=== PATIENT | male | born 2000 | race Caucasian/White ===

== ENCOUNTER 2024-03-08 00:37 | Outpatient (CLI) | payer OTHER, SELFPAY ==
--- OUTSIDE RECORDS SUMMARY | 2024-03-12 05:45 | XMS_ITS | Encounter Summary ---
Author Name Unknown Organization [facility] Address [address], [place] [address] Care Team Providers Care Motor Builder Winder Name Role Phone Ketan Carias MD Primary Care Provider [phone] Encounter Details Date Type Department Care Team (Late st Contact Info) Description 02/20/2024 2:00 PM CDT Lab Visit [facility] [address] [facility] [place] [address] Screening for tuberculosis; Need for [...] Gold Plus Mitogen (02/20/2024 1:56 PM CDT) [facility] Signature MITOGEN >10.000 IU/mL 02/23/2024 12:23 PM CDT [facility] Blood Venipuncture / Unknown 02/20/2024 1:56 PM CDT 02/20/2024 1:56 PM CDT Ketan Carias MD LAB_1 [facility] [address] [place] [address], [facility] * TB QuantiFERON Gold Plus TB2 (02/20/2024 1:56 PM CDT) Pathologist [facility] TB2 0.229 IU/mL 02/23/2024 12:23 PM CDT [facility] Blood Venipuncture / Unknown 02/20/2024 1:56 PM CDT 02/20/2024 1:56 PM CDT Ketan Carias MD LAB_1 Performing Organization Address [facility] Co de Phone Number [facility] [address] * TB QuantiFERON Gold Plus TB1 (02/20/2024 1:56 PM CDT) [facility] TB1 0.259 IU/mL 02/23/2024 12:24 PM CDT [facility] Blood Venipuncture / Unknown 02/20/2024 1:56 PM CDT 02/20/2024 1:56 PM CDT Ketan Carias MD LAB_1 Performing Organization Address [facility] de Phone Number [facility] [address] * TB QuantiFERON Gold Plus NIL (02/20/2024 1:56 PM CDT) [facility] TB QuantiFERON Gold Plus Negative, M. tuberculosis Infection NOT likely Negative, M. tuberculosis Infection NOT likely 02/23/2024 12:24 PM CDT [facility] NIL 0.169 IU/mL 02/23/2024 12:24 PM CDT [facility] TB1-NIL 0.09 IU/mL 02/23/2024 12:24 PM CDT [facility] TB2-NIL 0.06 IU/mL 02/23/2024 12:24 PM CDT [facility] Mitogen-NIL 9.83 IU/mL 02/23/2024 12:24 PM CDT [facility] Blood Venipuncture / Unknown 02/20/2024 1:56 PM CDT 02/20/2024 1:56 PM CDT Narrative [facility] - 02/23/2024 12:24 PM CDT The [...] immune response. For more information refer to: https://www.cdc.gov/mmwr/preview/mmwrhtml/dx5287z3.htm. Ketan Carias MD LAB_1 Performing Organization Address [facility] de Phone Number [facility] [address] [place] [address] * Rubella Immune Status, IgG (02/20/2024 1:56 PM CDT) Rubella Units 2.38 02/21/2024 12:39 PM CDT [facility] Comment:The magnitude of the measured result, above the cutoff, is not indicative of the amount of antibody present. Rubella Intepretation Immune Immune 02/21/2024 12:39 PM CDT [facility] Blood Venipuncture / Unknown 02/20/2024 1:56 PM CDT 02/20/2024 1:56 PM CDT Ketan Carias MD LAB_1 Performing Organization Address [facility] de Phone Number [facility] [address] [place] [address] * Mumps Virus Ab, IgG (Immune Status Check) (02/20/2024 1:56 PM CDT) Mumps Units 46.1 AU/mL 02/21/2024 12:34 PM CDT [facility] Comment:The magnitude of the measured result, above the cutoff, is not indicative of the amount of antibody present. Mumps Intepretation Immune Immune 02/21/2024 12:34 PM CDT [facility] Blood Venipuncture / Unknown 02/20/2024 1:56 PM CDT 02/20/2024 1:56 PM CDT Ketan Carias MD LAB_1 Performing Organization Address [facility] de Phone Number [facility] [address] [place] [address] * Measles Virus Ab, IgG (Immune Status Check) (02/20/2024 1:56 PM CDT) Rubeola Units 74.2 AU/mL 02/21/2024 12:33 PM CDT [facility] Comment:The magnitude of the measured result, above the cutoff, is not indicative of the amount of antibody present. Rubeola Interpretation Immune Immune 02/21/2024 12:33 PM CDT [facility] Blood Venipuncture / Unknown 02/20/2024 1:56 PM CDT 02/20/2024 1:56 PM CDT Ketan Carias MD LAB_1 Performing Organization Address [facility] Phone Number [facility] [address] [place] [address] * Hepatitis B Surface Antigen (02/20/2024 1:56 PM CDT) Pathologist [facility] Hepatitis B Surface Antigen Negative (Non Reactive) Negative (Non Reactive) 02/20/2024 6:20 PM CDT [facility] Blood Venipuncture / Unknown 02/20/2024 1:56 PM CDT 02/20/2024 1:56 PM CDT Ketan Carias MD LAB_1 Performing Organization Address [facility] de Phone Number [facility] [address] [place] [address] * Hepatitis B Surface Antibody (02/20/2024 1:56 PM CDT) Hep B Surf Antibody Result <2.0 mIU/mL 02/20/2024 6:36 PM CDT [facility] Hep B Surf Antibody Interpretation Negative (Non Reactive) Positive (Reactive) 02/20/2024 6:36 PM CDT [facility] Comment:Individual is consid ered not immune to HBV infection. Blood Venipuncture / Unknown 02/20/2024 1:56 PM CDT 02/20/2024 1:56 PM CDT Ketan Carias MD LAB_1 [facility] [address] [place], [place] [address] [place] [address] documented in this encounter Visit Diagnoses Diagnosis Screening for tuberculosis Screening examination for pulmonary tuberculosis Need for hepatitis B screening test Screening for measles Screening examination for measles documented in this encounter Care Teams Motor Builder Winder Relationship Specialty Start Date End Date Ketan Carias MD [address] [place] [address] PCP - General Family Practice 06/21/23 documented as of this encounter
--- OUTSIDE RECORDS SUMMARY | 2024-03-12 05:45 | XMS_ITS | Clinical Summary ---
Author Name Unknown Organization [facility] Address [address] [place] [address] Care Team Providers Care Vice President Name Role Phone Md, Not Listed Primary [...] Comments Blood Pressure 116/70 09/20/2023 12:00 PM SUPERVISOR GAS METER REPAIR Pulse 62 09/20/2023 12:00 PM SUPERVISOR GAS METER REPAIR Temperature 36.7 ??C (98 ??F) 09/20/2023 9:48 AM SUPERVISOR GAS METER REPAIR Respiratory Rate 16 09/20/2023 12:00 PM SUPERVISOR GAS METER REPAIR Oxygen Saturation 98% 09/20/2023 12:00 PM SUPERVISOR GAS METER REPAIR Inhaled Oxygen Concentration - - Weight 68 kg (150 lb) 09/17/2023 4:28 PM SUPERVISOR GAS METER REPAIR Height 177.8 cm (5' 10) 09/20/2023 6:38 AM SUPERVISOR GAS METER REPAIR Body Mass Index 21.52 09/17/2023 4:28 PM SUPERVISOR GAS METER REPAIR Plan of Treatment Health Maintenance Due Date [...] Advance Directives For more information, please contact: [phone] Latest Code Status on File Code Status Date Activated Date Inactivated Comments Full Code 09/20/2023 8:39 AM 09/20/2023 6:31 PM Question Answer Comments How was code status determined? Physician Determ [facility] Care Teams Vice President Relationship Specialty Start Date End Date Md, Not Listed no address PCP - General Family Medicine 09/09/23
--- OUTSIDE RECORDS SUMMARY | 2024-03-12 05:45 | XMS_ITS | Clinical Summary ---
Author Name Unknown Organization [facility] Address [address] [place] [address] Care Team Providers Care Retail Field Merchandiser Name Role Phone Ketan Carias MD Primary Care Provider [phone] Source Comments You are receiving this document as you are listed as the primary care provider,follow-up provider, or the patient has been referred to you for consultation.This is in compliance with the Medicare and[facility] EHR Incentive Program,which states Providers who [...] Active Insulin Infusion Pump (T:SLIM X2 INSULIN PRODUCTION SUPERINTENDENT HYDRO BASAL6.4) KARL Inject subcutaneously. Active Active Problems Problem Noted Date Diagnosed Date Peritonsillar abscess 09/13/2023 Encounters Date Type Department Care Team Description 02/20/2024 2:15 PM CDT Office Visit [address] [place] [address] Panda De La Garza MD Annual physical exam (Primary Dx); Type 1 diabetes mellitus without complication (HRC); Need for hepatitis C screening test; Screening for HIV (human immunodeficiency virus); Immunization due; Screening cholesterol level 02/20/2024 2:00 PM CDT Lab Visit [facility] [address] [place] [address]. [place] [address] Screening for tuberculosis; Need for hepatitis B screening test; Screening for measles 02/03/[address] [place] [address] Ketan Carias MD Lab/Rad Request from Last 3 Months Immunizations Name Administration Dates Next Due DTaP 11/28/2006, 4,01/26/2003,2002,2002 Flu Vac (3+ yrs) 07/22/2007,08/15/2005 Flu Vac Preserv Free (3+yrs) 08/05/2013, 07/18/2012,07/31/2011,2009 [id number] 12/07/2009,09/26/2009 HepA Ped/Adol (1-18 yrs) 07/08/2010,12/07/2009,0 07/22/2007 HepA, Pediatric (DO NOT USE; for MIIC only) 06/13/2006 HepB Ped/Adol (0-18 yrs) 2002 HepB, Unspecified Formulation 06/08/2003, 002 Hib, Unspecified Formulation 11/12/2003, 01/26/2003,2002,2001 IPV (Polio) 11/28/2006 Influenza (Flucelvax), Prese rv Free QIV 08/17/2022 Influenza IIV4 (Quadrivalent ) 0.5mL (16228) 07/26/2023,09/13/2021,07/14/2020,2014,08/03/2014 Influenza, Unspecified Formulation 09/04/2006 MCV4 Menveo [...] Rubella Units 2.38 02/21/2024 12:39 PM CDT [facility] Comment:The magnitude of the measured result, above the cutoff, is not indicative of the amount of antibody present. Rubella Intepretation Immune Immune 02/21/2024 12:39 PM CDT [facility] Blood Venipuncture / Unknown 02/20/2024 1:56 PM CDT 02/20/2024 1:56 PM CDT Ketan Carias MD LAB_1 Performing Organization Address [facility] Co de Phone Number [facility] [address] [place] [address] * TB QuantiFERON Gold Plus Mitogen (02/20/2024 1:56 PM CDT) MITOGEN >10.000 IU/mL 02/23/2024 12:23 PM CDT [facility] Blood Venipuncture / Unknown 02/20/2024 1:56 PM CDT 02/20/2024 1:56 PM CDT Ketan Carias MD LAB_1 Performing Organization Address [facility] Phone Number [facility] [address] [place] [address] * TB QuantiFERON Gold Plus TB2 (02/20/2024 1:56 PM CDT) TB2 0.229 IU/mL 02/23/2024 12:23 PM CDT [facility] Blood Venipuncture / Unknown 02/20/2024 1:56 PM CDT 02/20/2024 1:56 PM CDT Ketan Carias MD LAB_1 Performing Organization Address [facility] de Phone Number [facility] [address] [place] [address] * TB QuantiFERON Gold Plus TB1 (02/20/2024 1:56 PM CDT) TB1 0.259 IU/mL 02/23/2024 12:24 PM CDT [facility] Blood Venipuncture / Unknown 02/20/2024 1:56 PM CDT 02/20/2024 1:56 PM CDT Ketan Carias MD LAB_1 Performing Organization Address [facility] Co de Phone Number [facility] [address] * TB QuantiFERON Gold Plus NIL (02/20/2024 1:56 PM CDT) [facility] TB QuantiFERON Gold Plus Negative, M. tuberculosis Infection NOT likely Negative, M. tuberculosis Infection NOT likely 02/23/2024 12:24 PM CDT [facility] NIL 0.169 IU/mL 02/23/2024 12:24 PM CDT [facility] TB1-NIL 0.09 IU/mL 02/23/2024 12:24 PM CDT [facility] TB2-NIL 0.06 IU/mL 02/23/2024 12:24 PM CDT [facility] Mitogen-NIL 9.83 IU/mL 02/23/2024 12:24 PM CDT [facility] Blood Venipuncture / Unknown 02/20/2024 1:56 PM CDT 02/20/2024 1:56 PM CDT Narrative [facility] - 02/23/2024 12:24 PM CDT The [...] immune response. For more information refer to: https://www.cdc.gov/mmwr/preview/mmwrhtml/nw6247k5.htm. Ketan Carias MD LAB_1 [facility] [address] [place], [place] [address] [place] [address] * Hepatitis B Surface Antibody (02/20/2024 1:56 PM CDT) [facility] Hep B Surf Antibody Result <2.0 mIU/mL 02/20/2024 6:36 PM CDT [facility] Hep B Surf Antibody Interpretation Negative (Non Reactive) Positive (Reactive) 02/20/2024 6:36 PM CDT [facility] Comment:Individual is consid ered not immune to HBV infection. Blood Venipuncture / Unknown 02/20/2024 1:56 PM CDT 02/20/2024 1:56 PM CDT Ketan Carias MD LAB_1 Performing Organization Address [facility] de Phone Number [facility] [address] * Measles Virus Ab, IgG (Immune Status Check) (02/20/2024 1:56 PM CDT) Rubeola Units 74.2 AU/mL 02/21/2024 12:33 PM CDT [facility] Comment:The magnitude of the measured result, above the cutoff, is not indicative of the amount of antibody present. Rubeola Interpretation Immune Immune 02/21/2024 12:33 PM CDT [facility] Blood Venipuncture / Unknown 02/20/2024 1:56 PM CDT 02/20/2024 1:56 PM CDT Ketan Carias MD LAB_1 Performing Organization Address [facility] Phone Number [facility] [address] * Mumps Virus Ab, IgG (Immune Status Check) (02/20/2024 1:56 PM CDT) Mumps Units 46.1 AU/mL 02/21/2024 12:34 PM CDT [facility] Comment:The magnitude of the measured result, above the cutoff, is not indicative of the amount of antibody present. Mumps Intepretation Immune Immune 02/21/2024 12:34 PM CDT [facility] Blood Venipuncture / Unknown 02/20/2024 1:56 PM CDT 02/20/2024 1:56 PM CDT Ketan Carias MD LAB_1 Performing Organization Address [facility]ZIP Co de Phone Number [facility] [address] [place], [place] [address] * Hepatitis B Surface Antigen (02/20/2024 1:56 PM CDT) Hepatitis B Surface Antigen Negative (Non Reactive) Negative (Non Reactive) 02/20/2024 6:20 PM CDT [facility] Blood Venipuncture / Unknown 02/20/2024 1:56 PM CDT 02/20/2024 1:56 PM CDT Ketan Carias MD LAB_1 [facility] [address] [place] [address] from Last 3 Months Care Teams Retail Field Merchandiser Relationship Specialty Start Date End Date Ketan Carias MD [address] [place] [address] PCP - General Family Practice 06/21/23
--- OUTSIDE RECORDS SUMMARY | 2024-03-12 05:45 | XMS_ITS | Referral Summary ---
Author Name Unknown Organization [facility] Address [address] [place] [address] Care Team Providers Care Linoleum Tile Layer Name Role Phone Md, Not Listed Primary [...] Comments Blood Pressure 116/70 09/20/2023 12:00 PM VAMP STITCHER Pulse 62 09/20/2023 12:00 PM VAMP STITCHER Temperature 36.7 ??C (98 ??F) 09/20/2023 9:48 AM VAMP STITCHER Respiratory Rate 16 09/20/2023 12:00 PM VAMP STITCHER Oxygen Saturation 98% 09/20/2023 12:00 PM VAMP STITCHER Inhaled Oxygen Concentration - - Weight 68 kg (150 lb) 09/17/2023 4:28 PM VAMP STITCHER Height 177.8 cm (5' 10) 09/20/2023 6:38 AM VAMP STITCHER Body Mass Index 21.52 09/17/2023 4:28 PM VAMP STITCHER Plan of Treatment Not on file Advance Directives For more information, please contact: [phone] Latest Code Status on File Code Status Date Activated Date Inactivated Comments Full Code 09/20/2023 8:39 AM 09/20/2023 6:31 PM Question Answer Comments How was code status determined? [facility] Care Teams Linoleum Tile Layer Relationship Specialty Start Date End Date Md, Not Listed no address PCP - General Family Medicine 09/09/23
--- OUTSIDE RECORDS SUMMARY | 2024-03-12 05:45 | XMS_ITS | Referral Summary ---
Author Name Unknown Organization [facility] Address [address] [place] [address] Care Team Providers Care Home Care Companion Name Role Phone No Ref-Primary, Physician Primary [...] of Treatment Not on file Care Teams Home Care Companion Relationship Specialty Start Date End Date No Ref-Primary, Physician PCP - General 08/25/22
--- OUTSIDE RECORDS SUMMARY | 2024-03-12 05:46 | XMS_ITS | Clinical Summary ---
Author Name Unknown Organization [facility] Address [place], [place] [address] Care Team Providers Care Director E Learning Name Role Phone Physician, Briana Family Primary [...] age to complete this topic Care Teams Director E Learning Relationship Specialty Start Date End Date PhysicianBriana PCP - General 03/31/21
--- OUTSIDE RECORDS SUMMARY | 2024-03-12 05:46 | XMS_ITS | Encounter Summary ---
Author Name Unknown Organization [facility] Address [address], [place] [address] Care Team Providers Care Train Controller Name Role Phone Ketan Carias MD Primary Care Provider [phone] Reason for Visit * Reason Comments Lab/Rad Request Encounter Details Date Type Department Care Team (Late st Contact Info) Description 02/03/2024 Telephone [facility] [address] [place] [address]. [place] [address] Ketan Carias MD [facility] [place] [address] Lab/Rad Request Social History Tobacco [...] sign as appropriate and Route to CSS Patient/family day care worker request: New Order: Lab Specific Request: Needs [...] eligible for a QFT-G blood test. (RN, ORGANIZATIONAL PSYCHOLOGIST, or GRAPHIC DESIGN MANAGER/RMA/MA/EMT can place order per standing order for qualified patients). If patient answers YES to contraindication, consult with clinician for next steps. Step 3: Order Placement of QFT-G blood test TB Quantiferon Gold Plus lab order placed per standing order. Patient to present to lab for blood test. * Eliana Mccray RN - 02/03/2024 10:27 AM CDT Psychiatry Adult Physician called patient and left a message to call back [phone] Please use smart set to order * [...] Rubella Units 2.38 02/21/2024 12:39 PM CDT [facility] Comment:The magnitude of the measured result, above the cutoff, is not indicative of the amount of antibody present. Rubella Intepretation Immune Immune 02/21/2024 12:39 PM CDT [facility] Blood Venipuncture / Unknown 02/20/2024 1:56 PM CDT 02/20/2024 1:56 PM CDT Ketan Carias MD LAB_1 Performing Organization Address [facility] Phone Number [facility] [address] [place] [address] * Mumps Virus Ab, IgG (Immune Status Check) (02/20/2024 1:56 PM CDT) [facility] Mumps Units 46.1 AU/mL 02/21/2024 12:34 PM CDT [facility] Comment:The magnitude of the measured result, above the cutoff, is not indicative of the amount of antibody present. Mumps Intepretation Immune Immune 02/21/2024 12:34 PM CDT [facility] Blood Venipuncture / Unknown 02/20/2024 1:56 PM CDT 02/20/2024 1:56 PM CDT Ketan Carias MD LAB_1 Performing Organization Address [facility] Phone Number [facility] [address] [place] [address] * Measles Virus Ab, IgG (Immune Status Check) (02/20/2024 1:56 PM CDT) Rubeola Units 74.2 AU/mL 02/21/2024 12:33 PM CDT [facility] Comment:The magnitude of the measured result, above the cutoff, is not indicative of the amount of antibody present. Rubeola Interpretation Immune Immune 02/21/2024 12:33 PM CDT [facility] Blood Venipuncture / Unknown 02/20/2024 1:56 PM CDT 02/20/2024 1:56 PM CDT Ketan Carias MD LAB_1 Performing Organization Address [facility] Co de Phone Number [facility] [address] * Hepatitis B Surface Antigen (02/20/2024 1:56 PM CDT) Hepatitis B Surface Antigen Negative (Non Reactive) Negative (Non Reactive) 02/20/2024 6:20 PM CDT [facility] Blood Venipuncture / Unknown 02/20/2024 1:56 PM CDT 02/20/2024 1:56 PM CDT Ketan Carias MD LAB_1 Performing Organization Address [facility] Phone Number [facility] [address] * Hepatitis B Surface Antibody (02/20/2024 1:56 PM CDT) Hep B Surf Antibody Result <2.0 mIU/mL 02/20/2024 6:36 PM CDT [facility] Hep B Surf Antibody Interpretation Negative (Non Reactive) Positive (Reactive) 02/20/2024 6:36 PM CDT [facility] Comment:Individual is consid ered not immune to HBV infection. Blood Venipuncture / Unknown 02/20/2024 1:56 PM CDT 02/20/2024 1:56 PM CDT Ketan Carias MD LAB_1 Performing Organization Address [facility] Co de Phone Number [facility] [address] documented in this encounter Visit Diagnoses Diagnosis Screening for measles- Primary Screening examination for measles Screening for tuberculosis Screening examination for pulmonary tuberculosis Need for hepatitis B screening test documented in this encounter Care Teams Train Controller Relationship Specialty Start Date End Date Ketan Carias MD [address] [place] [address] PCP - General Family Practice 06/21/23 documented as of this encounter
--- OUTSIDE RECORDS SUMMARY | 2024-03-12 05:46 | XMS_ITS | Encounter Summary ---
Author Name Unknown Organization [facility] Address [address] [address] Care Team Providers Care Accounting Policy Consultant Name Role Phone Ketan Carias MD Primary Care Provider [phone] Reason for Visit * Reason Comments Annual Exam Test Request Tb/titer Encounter Details Date Type Department Care Team (Late st Contact Info) Description 02/20/2024 2:15 PM CDT Office Visit [place] [address] [facility] [address] [place], [place] [address] Panda De La Garza MD [address] [place], [place] [id number] Annual physical exam (Primary Dx); Type 1 [...] and me. Preceptor saw the patient. Panda De La Garza MD [place] Resident PGY-3 02/20/24 Associated attestation - Valeria Maynard MD - 02/20/2024 5:12 PM CDT [place] PRECEPTOR ATTESTATION GC: This service has been [...] disorders documented in this encounter Care Teams Accounting Policy Consultant Relationship Specialty Start Date End Date Ketan Carias MD [address] [place] [address] PCP - General Family Practice 06/21/23 documented as of this encounter
--- OUTSIDE RECORDS SUMMARY | 2024-03-12 05:46 | XMS_ITS | Patient Health Record ---
Author Name Unknown Organization [facility] Address [address] [place] [address] Care Team Providers Care Splitter Head Name Role Phone Jaye Membrenoan Primary Care Provider [phone] Reason For Referral No Information Immunizations Vaccine [...] Insured Coverage Start Date Coverage End Date [facility] [address] [place] [address] [id number] DEBORAH BURGESS Self - patient is the insured
== END 2024-03-08 00:38 | disposition home or self-care (01) ==
LOC: AMB 03-12 05:43
PROVIDERS: Visit Provider Family Medicine
DX: F10.129 Alcohol abuse with intoxication, unspecified (principal); R41.82 Altered mental status, unspecified
CPT/HCPCS: A0425; A0429

== ENCOUNTER 2024-03-08 01:06 | Emergency (ER) | payer OTHER, SELFPAY ==
[2024-03-08] VITALS (44 sets, daily range): BP systolic 83–115; BP diastolic 48–84; PULSE 68–90; RESP 16; TEMP 35.9; O2SAT 94–99
[2024-03-08] MEDS: 0.9 % SODIUM CHLORIDE 500 ML 500 ML 1000 ML IV (01:17)
--- NOTE | 2024-03-08 01:21 | ED.GENADULT ---
HPI - General Adult General Chief complaint: Alcohol/Intoxication Stated complaint: ETOH Time Seen by Provider: 03/08/24 01:11 Source: EMS Mode of arrival: EMS Limitations: other (Acute intoxication) History of Present Illness HPI narrative: Attended promptly in stable 1 upon EMS arrival. 23-year-old type 1 diabetic male presents to the emergency department by EMS with reported hypoglycemia. He was drinking alcohol heavily with a group of friends when they became concerned that he was getting too intoxicated and they were worried that his blood sugar could be low. He does wear continuous glucose monitor. According to the EMS team, there were no signs of alerts or trauma. Interestingly, the friend group decided to strip him down and put him in the shower which is where he is when EMS arrives. The rationale is unclear. Blood sugar was noted to be 66 at the scene and he was given 1 amp of D50. Initially with EMS arrival, he had woken up more but he sneezes back off to sleep on route. He did vomit in the ambulance as well and I arrive to him being cleaned up by the nursing team and getting triaged. He does not answer questions but he repositions for comfort and will open his eyes briefly to look at my face before he drifts off again. He does not offer anything else verbally. He does not have an insulin pump in place. Continuous glucose monitor in right posterior arm. No signs of drug paraphernalia or the trauma based on EMS assessment. The only treatment given was the glucose. They did not report any recent DKA or blood sugar anomalies but the friends would not likely be reliable sources for this due to their intoxication. Past medical history is obtained from EMS only and will need to be clarified but seems to only be pertinent for type 1 diabetes. I do not have records on his home medications or insulin regimen yet. ROS is unreliable, given only from EMS and notable for the hypoglycemia and intoxication. Related Data Home Medications Medication Instructions Recorded Confirmed Unobtainable 03/08/24 03/08/24 [facility] Social History Smoking Status: Never smoker Do you use any of these nicotine containing products: None How often do you have a drink containing alcohol: 2-4 times a month AUDIT-C Alcohol total score: 2 Non-prescribed substance use: denies use Exam Const: Vital Signs, click to edit/add: Vital Signs - 24 hr 03/08/24 01:13 03/08/24 01:44 03/08/24 01:45 Temperature 96.6 F L Pulse Rate 81 68 Respiratory Rate 16 Blood Pressure 98/63 Blood Pressure [Ri ght Upper Arm] 115/84 Pulse Oximetry 97 97 99 Oxygen Delivery Me thod Room Air 03/08/24 01:46 03/08/24 02:00 03/08/24 02:01 Temperature Pulse Rate 70 74 76 Respiratory Rate Blood Pressure 92/61 Blood Pressure [Ri ght Upper Arm] Pulse Oximetry 99 97 98 Oxygen Delivery Me thod 03/08/24 02:16 03/08/24 02:17 03/08/24 02:23 Temperature Pulse Rate 68 69 76 Respiratory Rate Blood Pressure 88/65 L 95/62 Blood Pressure [Ri ght Upper Arm] Pulse Oximetry 98 99 98 Oxygen Delivery Me thod 03/08/24 02:30 03/08/24 02:31 03/08/24 02:32 Temperature Pulse Rate 75 70 70 Respiratory Rate Blood Pressure 91/66 Blood Pressure [Ri ght Upper Arm] Pulse Oximetry 98 97 98 Oxygen Delivery Me thod 03/08/24 02:46 03/08/24 02:47 03/08/24 03:01 Temperature Pulse Rate 76 76 73 Respiratory Rate Blood Pressure 93/59 L 91/54 L Blood Pressure [Ri ght Upper Arm] Pulse Oximetry 98 98 98 Oxygen Delivery Me thod 03/08/24 03:02 03/08/24 03:15 03/08/24 03:16 Temperature Pulse Rate 75 74 74 Respiratory Rate Blood Pressure 94/54 L Blood Pressure [Ri ght Upper Arm] Pulse Oximetry 97 97 97 Oxygen Delivery Me thod 03/08/24 03:30 03/08/24 03:31 03/08/24 03:32 Temperature Pulse Rate 75 74 77 Respiratory Rate Blood Pressure 99/61 Blood Pressure [Ri ght Upper Arm] Pulse Oximetry 96 96 97 Oxygen Delivery Me thod 03/08/24 03:45 03/08/24 03:46 03/08/24 04:00 Temperature Pulse Rate 75 70 74 Respiratory Rate Blood Pressure 96/60 Blood Pressure [Ri ght Upper Arm] Pulse Oximetry 96 96 96 Oxygen Delivery Me thod 03/08/24 04:01 03/08/24 04:15 03/08/24 04:16 Temperature Pulse Rate 76 75 76 Respiratory Rate Blood Pressure 91/64 95/51 L Blood Pressure [Ri ght Upper Arm] Pulse Oximetry 95 96 96 Oxygen Delivery Me thod 03/08/24 04:31 03/08/24 04:32 03/08/24 04:45 Temperature Pulse Rate 68 74 78 Respiratory Rate Blood Pressure 91/50 L Blood Pressure [Ri ght Upper Arm] Pulse Oximetry 96 96 95 Oxygen Delivery Me thod 03/08/24 04:46 03/08/24 05:00 03/08/24 05:01 Temperature Pulse Rate 79 78 81 Respiratory Rate Blood Pressure 88/50 L 87/51 L Blood Pressure [Ri ght Upper Arm] Pulse Oximetry 95 95 95 Oxygen Delivery Me thod 03/08/24 05:15 03/08/24 05:16 03/08/24 05:17 Temperature Pulse Rate 75 75 76 Respiratory Rate Blood Pressure 85/52 L Blood Pressure [Ri ght Upper Arm] Pulse Oximetry 95 95 95 Oxygen Delivery Me thod 03/08/24 05:30 03/08/24 05:31 03/08/24 05:45 Temperature Pulse Rate 73 72 71 Respiratory Rate Blood Pressure 91/48 L Blood Pressure [Ri ght Upper Arm] Pulse Oximetry 95 96 95 Oxygen Delivery Ut thod 03/08/24 05:46 03/08/24 06:00 03/08/24 06:01 Temperature Pulse Rate 75 75 90 Respiratory Rate Blood Pressure 83/48 L 98/49 L Blood Pressure [Ri ght Upper Arm] Pulse Oximetry 95 95 95 Oxygen Delivery Ut thod 03/08/24 06:15 03/08/24 06:16 Temperature Pulse Rate 76 73 Respiratory Rate Blood Pressure 93/50 L Blood Pressure [Ri ght Upper Arm] Pulse Oximetry 94 94 Oxygen Delivery Me thod Documenting provider has reviewed patient's vital signs: yes Other: Drowsy, will open eyes to voice only but does not answer questions. Will reposition himself for comfort. Covered in vomit but is being cleaned by nursing team. No obvious signs of trauma or skin injury. HENMT: Common normals: normocephalic, moist oral mucous membranes and oropharynx normal Head and scalp: normocephalic Eye: Common normals: PERRL General eye: normal appearance of both eyes Pupil: PERRL Neck & C-Spine: Common normals: no lymphadenopathy General: normal visual inspection Cervical spine: no cervical spine tenderness Resp: Common normals: normal respiratory effort and clear to auscultation bilaterally Auscultation: clear to auscultation bilaterally Cardio: Common normals: regular rate, regular rhythm, S1 normal heart sound, S2 normal heart sound and no murmurs Rate: regular rate Rhythm: regular rhythm Heart sounds: S1 normal and S2 normal GI: Common normals: Normal to inspection, nondistended, normoactive bowel sounds present, soft to palpation and no masses Palpation: soft Extremity: Common normals: normal to inspection, normal capillary refill and no pedal edema General: normal exam except as noted Psych: Other: Heavily intoxicated Skin: Common normals: no rashes or lesions noted General skin exam: no rashes or lesions noted Course Course ED Course: 23-year-old male with heavy alcohol intoxication, mild hypoglycemia not likely the source of his altered mental status. High risk for hypoglycemia, DKA or other abnormality. Cannot exclude other metabolic derangement. Patient will receive a quick bolus of 500 mL normal saline and 4 mg of Zofran. Will then obtain venous blood gas, alcohol level, basic chemistry, CBC. Hourly Accu-Cheks. Blood sugar during my assessment was 122. Will start D5 normal saline at 125 mL/hour and watch hourly Accu-Cheks. Patient cannot be discharged home until he is fully alert, sober and able to check his own blood sugar and take oral nutrition, will likely be in 6-8 hours. Reevaluation(s) Time of Reevaluation #1: 03:53 Reevaluation #1: Item dated dad about an hour ago regarding son's condition. I do not think that there was any significant time of severe hyperglycemia that would have caused mental impairment. Patient is quite drunk. I did see his insulin pump on his abdomen. This was hiding under the towel which was containing his vomit on my initial exam. Continue to watch his blood sugars carefully. Nursing team just informed me that his most recent check was 77, compared to 971 hour ago. Will increase the D5 rate to 200 mL/hour and recheck blood sugar in 1 hour. Once patient is awake enough to operate his own phone, we can switch to use of his CGM. If he is not starting to improve mentation in a couple of hours, consider additional workup. Time of Reevaluation #2: 07:19 Reevaluation #2: We have been steadily decreasing the D5 drip overnight to keep his blood sugar 100-150. Patient is wide awake now. He is able to interrogate his CGM for me. It looks like his blood sugar was borderline low for about a 1/2 hour around the time EMS was called. I have him get up, test his ambulation balance, ocular tracking. Dad is drooling him with math questions which he also passes. He is able to hold conversation as well. There do not seem to be any major deficits. I do not think that a CT scan would further answer this question for me. Counseled dad that the most important treatment is rapid correction of low blood sugars which we were able to do. Additional neurological workup could be taken on if there appear to be any deficits which I doubt that there will be moving forward. Patient counseled to drink lots of fluids, continue managing his insulin basal and bolus is as per his typical regimen. Okay to use Tylenol and ibuprofen as needed for headache, body aches. Dad will take him home. Alarm symptoms reviewed. All questions answered Vital Signs Vital signs: Initial Vital Signs Temperature 96.6 F L 03/08/24 01:13 Temperature Source Temporal Artery Scan 03/08/24 01:13 Respiratory Rate 16 03/08/24 01:13 Blood Pressure 115/84 03/08/24 01:13 Blood Pressure Mean 94 03/08/24 01:13 Pulse Oximetry 97 03/08/24 01:13 Oxygen Delivery Method Room Air 03/08/24 01:13 Vital Signs Temperature 96.6 F L 03/08/24 01:13 Respiratory Rate 16 03/08/24 01:13 Blood Pressure 115/84 03/08/24 01:13 Pulse Oximetry 97 03/08/24 01:13 Oxygen Delivery Method Room Air 03/08/24 01:13 Temperature 96.6 F L 03/08/24 01:13 Pulse Rate 73 03/08/24 06:16 Respiratory Rate 16 03/08/24 01:13 Blood Pressure 93/50 L 03/08/24 06:16 Pulse Oximetry 94 03/08/24 06:16 Oxygen Delivery Method Room Air 03/08/24 01:13 Medications Administered Medications: Generic Name Dose Route Start Last Admin Trade Name Freq PRN Reason Stop Dose Admin Dextrose/Sodium Chloride 1,000 mls @ 200 mls/hr 03/08/24 03:32 03/08/24 06:21 5 % Dextrose/0.9% Sod Chloride IV 125 mls/hr .Q5H CANDY Infusion Discontinued Medications Generic Name Dose Route Start Last Admin Trade Name Chago TANN Reason Stop Dose Admin Dextrose/Sodium Chloride 1,000 mls @ 125 mls/hr 03/08/24 01:15 03/08/24 03:31 5 % Dextrose/0.9% Sod Chloride IV Infused .Q8H CANDY Infusion Sodium Chloride 500 mls @ 1,000 mls/hr 03/08/24 01:14 03/08/24 02:04 0.9 % Sodium Chloride 500 Ml IV 03/08/24 01:43 Infused .Q30M ONE Infusion Ondansetron HCl 4 mg 03/08/24 01:14 03/08/24 01:24 Ondansetron 2 Mg/Ml Inj IVP 03/08/24 01:15 4 mg ONCE ONE Administration Medical Decision Making Lab Data Lab results reviewed: Yes I reviewed the patient's lab results Lab results narrative: Overall initially reassuring. Hypoglycemia is improving. Glucose drip has been started. No signs of an anion gap or underlying unusual metabolic process. Blood alcohol level 0.2. That would certainly explain the decreased responsiveness. Labs: Lab Results 03/08/24 03/08/24 03/08/24 Range/Units 01:11 01:38 02:11 WBC 11.93 H (4.50-11.00) K/uL RBC 4.80 (4.30-5.90) m/uL Hgb 14.6 (13.5-17.5) gm/dL Hct 44.0 (37.0-53.0) % MCV 92 (80-100) fL MCH 30 (26-34) pg MCHC 33 (32-36) gm/dL RDW Coeff of David 13.1 (11.5-15.5) % Plt Count 195 (140-440) K/uL Neut % (Auto) 68.6 (42.0-72.0) % Lymph % (Auto) 21.5 (20-44) % [place] % (Auto) 6.9 (0.0-11.0) % Eos % (Auto) 1.5 (0.0-7.0) % Baso % (Auto) 0.3 (0.0-3.0) % Neut # (Auto) 8.20 H (1.7-7.0) K/uL Lymph # (Auto) 2.60 (0.90-2.90) K/uL [place] # (Auto) 0.80 (0.00-0.90) K/UL Eos # (Auto) 0.20 (0.00-0.50) K/uL Baso # (Auto) 0.00 (0.00-0.30) K/uL Abs Immat Gran (auto) 0.10 (0.00-0.30) K/uL Imm/Tot Granulo (auto) 1.2 % VBG pH 7.281 L (7.32-7.43) VBG pCO2 54 H (40-50) mmHG VBG pO2 < 30.1 (25-47) mmHG VBG HCO3 26 (21-28) mmol/L Sodium 143 (135-149) mmol/L Potassium 3.4 L (3.6-5.1) mmol/L Chloride 109 (96-114) mmol/L Carbon Dioxide 24 (20-32) mmol/L Anion Gap 10 (7-15) mEq/L BUN 14 (5-24) mg/dL Creatinine 0.7 (0.5-1.5) mg/dL Estimated GFR 134 ml/min Glucose 78 (60-115) mg/dL Calcium 8.3 L (8.4-10.6) mg/dL Ethyl Alcohol 0.20 H (0.01-0.03) % POC Glucose 122 H 97 (60-115) mg/dl 03/08/24 03/08/24 03/08/24 Range/Units 03:15 04:11 05:15 WBC (4.50-11.00) K/uL RBC (4.30-5.90) m/uL Hgb (13.5-17.5) gm/dL Hct (37.0-53.0) % MCV (80-100) fL MCH (26-34) pg MCHC (32-36) gm/dL RDW Coeff of David (11.5-15.5) % Plt Count (140-440) K/uL Neut % (Auto) (42.0-72.0) % Lymph % (Auto) (20-44) % [place] % (Auto) (0.0-11.0) % Eos % (Auto) (0.0-7.0) % Baso % (Auto) (0.0-3.0) % Neut # (Auto) (1.7-7.0) K/uL Lymph # (Auto) (0.90-2.90) K/uL [place] # (Auto) (0.00-0.90) K/UL Eos # (Auto) (0.00-0.50) K/uL Baso # (Auto) (0.00-0.30) K/uL Abs Immat Gran (auto) (0.00-0.30) K/uL Imm/Tot Granulo (auto) % VBG pH (7.32-7.43) VBG pCO2 (40-50) mmHG VBG pO2 (25-47) mmHG VBG HCO3 (21-28) mmol/L Sodium (135-149) mmol/L Potassium (3.6-5.1) mmol/L Chloride (96-114) mmol/L Carbon Dioxide (20-32) mmol/L Anion Gap (7-15) mEq/L BUN (5-24) mg/dL Creatinine (0.5-1.5) mg/dL Estimated GFR ml/min Glucose (60-115) mg/dL Calcium (8.4-10.6) mg/dL Ethyl Alcohol (0.01-0.03) % POC Glucose 77 115 142 H (60-115) mg/dl 03/08/24 Range/Units 06:20 WBC (4.50-11.00) K/uL RBC (4.30-5.90) m/uL Hgb (13.5-17.5) gm/dL Hct (37.0-53.0) % MCV (80-100) fL MCH (26-34) pg MCHC (32-36) gm/dL RDW Coeff of David (11.5-15.5) % Plt Count (140-440) K/uL Neut % (Auto) (42.0-72.0) % Lymph % (Auto) (20-44) % [place] % (Auto) (0.0-11.0) % Eos % (Auto) (0.0-7.0) % Baso % (Auto) (0.0-3.0) % Neut # (Auto) (1.7-7.0) K/uL Lymph # (Auto) (0.90-2.90) K/uL [place] # (Auto) (0.00-0.90) K/UL Eos # (Auto) (0.00-0.50) K/uL Baso # (Auto) (0.00-0.30) K/uL Abs Immat Gran (auto) (0.00-0.30) K/uL Imm/Tot Granulo (auto) % VBG pH (7.32-7.43) VBG pCO2 (40-50) mmHG VBG pO2 (25-47) mmHG VBG HCO3 (21-28) mmol/L Sodium (135-149) mmol/L Potassium (3.6-5.1) mmol/L Chloride (96-114) mmol/L Carbon Dioxide (20-32) mmol/L Anion Gap (7-15) mEq/L BUN (5-24) mg/dL Creatinine (0.5-1.5) mg/dL Estimated GFR ml/min Glucose (60-115) mg/dL Calcium (8.4-10.6) mg/dL Ethyl Alcohol (0.01-0.03) % POC Glucose 152 H (60-115) mg/dl Discharge Plan Discharge Clinical Impression: Alcoholic intoxication, Hypoglycemia Patient Disposition: Home w/ Parent or Adult Condition: Improved Instructions: Alcohol Intoxication (DC) Additional Instructions: Drinking alcohol to the point of having intoxication can be dangerous because of your diabetes. There are no clear signs of damage from your low blood sugar. Your altered mental status was thought more likely secondary to alcohol since your levels were nearly triple the legal limit. Continue your typical basal and bolus dosing through today. Drink lots of fluids. Seek input from campus health services if you feel your drinking is problematic. Activity Level: No Restrictions Discharge Diet: Diabetic Prescriptions: No Action Unobtainable Follow Up/Referrals: Provider,Not a Local [Primary Care Provider] - Stand Alone Forms: [employer] Info Instructions
[2024-03-08] MEDS: ONDANSETRON 2 MG/ML inj 4 MG IVP (01:24)
[2024-03-08 01:38] LABS: Glucose, Point-of-Care* 122 mg/dl (60-115)
[2024-03-08] MEDS: 5 % DEXTROSE/0.9% SOD CHLORIDE 1,000 ML 125 ML IV (01:45)
[2024-03-08 01:46] LABS: HCO3 VBG 26 mmol/L (21-28); PCO2 VBG 54 mmHG (40-50); PO2 VBG < 30.1 mmHG (25-47); pH VBG 7.281 (7.32-7.43)
[2024-03-08 01:49] LABS: Basophils Percent Auto 0.3 % (0.0-3.0); Eosinophils Percent Auto 1.5 % (0.0-7.0); Hemoglobin* 14.6 gm/dL (13.5-17.5); Immature Granulocytes Pct Auto 1.2 %; Lymphocytes Percent Auto 21.5 % (20-44); Mean Corpuscular HGB Conc 33 gm/dL (32-36); Mean Corpuscular Hemoglobin 30 pg (26-34); Mean Corpuscular Volume 92 fL (80-100); Monocytes Percent Auto 6.9 % (0.0-11.0); Neutrophils Percent Auto 68.6 % (42.0-72.0); Platelet Count* 195 K/uL (140-440); RDW Coefficient of Variation % 13.1 % (11.5-15.5); White Blood Count* 11.93 K/uL (4.50-11.00)
[2024-03-08 02:02] LABS: Slide Review Reflex No
[2024-03-08 02:03] LABS: Chloride* 109 mmol/L (96-114); Sodium* 143 mmol/L (135-149)
[2024-03-08 02:04] LABS: Potassium* 3.4 mmol/L (3.6-5.1)
[2024-03-08 02:06] LABS: Creatinine* 0.7 mg/dL (0.5-1.5); Estimated Glomerular Filt Rate 134 ml/min
[2024-03-08 02:07] LABS: Anion Gap 10 mEq/L (7-15); Blood Urea Nitrogen* 14 mg/dL (5-24); Calcium* 8.3 mg/dL (8.4-10.6); Carbon Dioxide* 24 mmol/L (20-32); Glucose* 78 mg/dL (60-115)
[2024-03-08 02:21] LABS: Glucose, Point-of-Care* 97 mg/dl (60-115)
--- OUTSIDE RECORDS SUMMARY | 2024-03-08 02:52 | XMS_ITS | Clinical Summary ---
Author Name Unknown Organization [employer] [facility] Address [place], [place] [address] Care Team Providers Care Pm Technician Name Role Phone Physician, Briana Family Primary Care Provider Un available Allergies No known active allergies Medications Medication Sig Dispensed Refills Start Date End Date Status Lyumjev U-100 Insulin 100 unit/mL soln INJECT 120 UNITS UNDER THE SKIN DAILY DIRECTED 03/31/2021 Active Glucagon Emergency Kit, human, 1 mg injection INJECT UNDER THE SKIN NEEDED FOR SEVERE HYPOGLYCEMIA 12/02/2020 Active Social History Tobacco Use Types Packs/Day Years Used Date Smoking Tobacco: Never Smokeless Tobacco: Never Tobacco Cessation:Counseling Given: No Alcohol Use Standard Drinks/Week Comments Not Currently 0 (1 standard drink = 0.6 oz pur e alcohol) PHQ-2 Answer Date Recorded PHQ-2 TOTAL SCORE 0 04/10/2021 Social Connections Answer Date Recorded Frequency of Communication with Friends and Fami ly Not on file 11/04/2021 Financial Resource Strain Answer Date R ecorded Difficulty of Paying Living Expenses Not on file 11/04/2021 Difficulty of Paying Living Expenses Not on file 11/04/2021 Sex and Gender Information Value Date Recorded Sex Assigned at Not on file Gender Identity Not on file Sexual Orientation Not on file Obstetrics History Last Filed Vital Signs Vital Sign Reading Time Taken Comments Blood Pressure 114/76 04/10/2021 10:06 AM CDT Pulse 68 04/10/2021 10:06 AM CDT Temperature - - Respiratory Rate - - Oxygen Saturation - - Inhaled Oxygen Concentration - - Weight 62.1 kg (137 lb) 04/10/2021 10:06 AM CDT Height 177.8 cm (5' 10) 04/10/2021 10:06 AM CDT Body Mass Index 19.66 04/10/2021 10:06 AM CDT Plan of Treatment Health Maintenance Due Date Last Done Comments Tdap 2013 HIV for age 15-65 2017 HPV series for age 9-26 (1 - Male 3-dose series) 2017 Hepatitis C screening for ag e 18-79 2020 BMI (ht and wt on same day) for age 18+ 04/10/2022 04/10/2021 Depression screening for age 12+ 04/10/2022 04/10/20 21 Tetanus booster 2022 COVID-19 vaccine series ( season) 2023 Influenza for age 9-49 07/05/2024 Meningococcal series for age 11-21 Aged Out No longer eligible based on patient's age to complete this topic Pneumococcal series for age 6-64 Aged Out No longer eligible based on patient's age to complete this topic Care Teams Pm Technician Relationship Specialty Start Date End Date PhysicianBriana PCP - General 03/31/21
--- OUTSIDE RECORDS SUMMARY | 2024-03-08 02:52 | XMS_ITS | Encounter Summary ---
Author Name Unknown Organization [facility] Address [address] [address] Care Team Providers Care Special Effects Artist Name Role Phone Ketan Carias MD Primary Care Provider [phone] Reason for Visit * Reason Comments Lab/Rad Request Encounter Details Date Type Department Care Team (Late st Contact Info) Description 02/03/2024 Telephone [facility] [address] [place] [address]. [place] [address] Ketan Carias MD [facility] [place] [address] Lab/Rad Request Social History Tobacco Use Types Packs/Day Years Used Date Smoking Tobacco: Never Smokeless Tobacco: Never Alcohol Use Standard Drinks/Week Comments Yes 1 (1 standard drink = 0.6 oz pur e alcohol) occ PHQ-2 Answer Date Recorded PHQ-2 Score 0 07/03/2023 Financial Resource Strain Answer Date R ecorded Is it hard for you to pay fo r the very basics like food, housing, medical care or heating? No 07/03/2023 Food Insecurity Answer Date Recorded Does your food run out before you have the money to buy more? No 07/03/2023 Transportation Needs Answer Date Record ed Does a lack of transportatio n keep you from your medical appointments or from getting your medications? No 023 Sex and Gender Information Value Date Recorded Sex Assigned at Not on file Gender Identity Not on file Sexual Orientation Not on file documented as of this encounter Nursing Notes * DayEliana RN - 02/03/2024 11:35 AM CDT Patient calling back - routed to lab for appt * Marika Nicholson LPN - 02/03/2024 11:18 AM CDT Left detailed message as well as number to call back if patient has any questions. * Ketan Carias MD - 02/03/2024 11:13 AM CDT Order signed. * Eliana Mccray RN - 02/03/2024 10:34 AM CDT Clinician: Review order(s) and sign as appropriate and Route to CSS Patient/intensive care nurse request: New Order: Lab Specific Request: Needs labs for med school, pended below Patient is needing titers for hep b surface antibody, antigen and MMR TB gold test ordered per standing order. Deejay Lopez is here today for Tuberculosis testing. Step 1: Determine appropriate test for patient. Has patient had a documented previous positive Tuberculin Skin Test (Mantoux Test/TST) or positive QFT-G blood test (Quantiferon Gold/TB Gold)? No What is the patient???s age? 2 years of age or older. The preferred test for this age group is the QFT-G blood test (Quantiferon Gold/TB Gold). If the patient prefers the skin test, the TST can be ordered and administered following this standing order. Step 2: Assessment and Contraindication Screening & Testing QFT-G blood Test Assessment Information (Can be done by IVANNA KELLY, ALLAN/RUPERT/MA/EMT). Is TB testing required for C&TC exam, work, school, or immigration? Yes Has there been a recent exposure to an individual with TB disease? No Was patient born in, had recent travel to, or frequently travels to countries where TB disease is common? No Does patient live or work in high-risk settings (i.e., correctional facilities, long-term care facilities, nursing homes, homeless shelters, etc.)? No Is patient immunosuppressed? No If the answer is YES to any of these questions, the patient is eligible for a QFT-Gold blood test. Proceed to next step: Order Placement of QFT-G blood Test. If all of the answers are NO, patient does not meet requirements to order TB testing by standing order. Consult clinician for next steps. Contraindication Screening: Received live-virus vaccination within the past 4 weeks? No Patient reports the following TB symptoms: none If patient reports any TB symptoms initiate airborne precautions: patient needs to be seen by clinician. If NO contraindications: the patient is eligible for a QFT-G blood test. (RN, ROLLS BAKER, or SPECIAL EFFECTS DESIGNER/RMA/MA/EMT can place order per standing order for qualified patients). If patient answers YES to contraindication, consult with clinician for next steps. Step 3: Order Placement of QFT-G blood test TB Quantiferon Gold Plus lab order placed per standing order. Patient to present to lab for blood test. * Eliana Mccray RN - 02/03/2024 10:[address] Construction Inspector called patient and left a message to call back [phone] Please use smart set to order * Phuc Artis - 02/03/2024 10:14 AM CDT Orders - Lab What order is being requested? Quantiferon Gold Titer testing Why is this order being requested? Needs for school When were you seen last for this concern? By whom? 07/03/2023 with PCP Additional comments (related to the above concern): Is it okay to leave a detailed message on your voicemail? Yes Is there anything else I can help you with today? documented in this encounter Plan of Treatment Not on file documented as of this encounter Results * Rubella Immune Status, IgG (02/20/2024 1:56 PM CDT) Rubella Units 2.38 02/21/2024 12:39 PM CDT [facility] Comment:The magnitude of the measured result, above the cutoff, is not indicative of the amount of antibody present. Rubella Intepretation Immune Immune 02/21/2024 12:39 PM CDT [facility] Blood Venipuncture / Unknown 02/20/2024 1:56 PM CDT 02/20/2024 1:56 PM CDT Ketan Carias MD LAB_1 Performing Organization Address [facility] Phone Number [facility] [address] [place] [address] * Mumps Virus Ab, IgG (Immune Status Check) (02/20/2024 1:56 PM CDT) [facility] Mumps Units 46.1 AU/mL 02/21/2024 12:34 PM CDT [facility] Comment:The magnitude of the measured result, above the cutoff, is not indicative of the amount of antibody present. Mumps Intepretation Immune Immune 02/21/2024 12:34 PM CDT [facility] Blood Venipuncture / Unknown 02/20/2024 1:56 PM CDT 02/20/2024 1:56 PM CDT Ketan Carias MD LAB_1 Performing Organization Address [facility] Phone Number [facility] [address] [place] [address] * Measles Virus Ab, IgG (Immune Status Check) (02/20/2024 1:56 PM CDT) Rubeola Units 74.2 AU/mL 02/21/2024 12:33 PM CDT [facility] Comment:The magnitude of the measured result, above the cutoff, is not indicative of the amount of antibody present. Rubeola Interpretation Immune Immune 02/21/2024 12:33 PM CDT [facility] Blood Venipuncture / Unknown 02/20/2024 1:56 PM CDT 02/20/2024 1:56 PM CDT Ketan Carias MD LAB_1 Performing Organization Address [facility] Co de Phone Number [facility] [address] * Hepatitis B Surface Antigen (02/20/2024 1:56 PM CDT) Hepatitis B Surface Antigen Negative (Non Reactive) Negative (Non Reactive) 02/20/2024 6:20 PM CDT [facility] Blood Venipuncture / Unknown 02/20/2024 1:56 PM CDT 02/20/2024 1:56 PM CDT Ketan Carias MD LAB_1 Performing Organization Address [facility] Phone Number [facility] [address] * Hepatitis B Surface Antibody (02/20/2024 1:56 PM CDT) Hep B Surf Antibody Result <2.0 mIU/mL 02/20/2024 6:36 PM CDT [facility] Hep B Surf Antibody Interpretation Negative (Non Reactive) Positive (Reactive) 02/20/2024 6:36 PM CDT [facility] Comment:Individual is consid ered not immune to HBV infection. Blood Venipuncture / Unknown 02/20/2024 1:56 PM CDT 02/20/2024 1:56 PM CDT Ketan Carias MD LAB_1 Performing Organization Address [facility] Co de Phone Number [facility] [address] documented in this encounter Visit Diagnoses Diagnosis Screening for measles- Primary Screening examination for measles Screening for tuberculosis Screening examination for pulmonary tuberculosis Need for hepatitis B screening test documented in this encounter Care Teams Special Effects Artist Relationship Specialty Start Date End Date Ketan Carias MD [address] [place] [address] PCP - General Family Practice 06/21/23 documented as of this encounter
--- OUTSIDE RECORDS SUMMARY | 2024-03-08 02:52 | XMS_ITS | Clinical Summary ---
Author Name Unknown Organization [facility] Address [address] [place] [address] Care Team Providers Care Patternator Name Role Phone Md, Not Listed Primary Care Provider Unavailabl e Allergies No known active allergies Medications Medication Sig Dispensed Refills Start Date End Date Status insulin lispro, HumaLOG, (HUMALOG U-100 INSULIN) 100 unit/mL vial Inject under the skin three times a day before meals. With meals Active insulin pump Inject under the skin. Type of insulin: Humalog Basal rate: 1 Correctional scale: 26 Insulin to carb ratio: 5.5 Active albuterol HFA (PROVENTIL;VENTOLIN HFA) 90 mcg/actuation Inhl inhaler Inhale 2 puffs as needed. Active oxyCODONE (ROXICODONE) 5 mg/5 mL oral solution Take 5-10 mL (5-10 mg) by mouth every 4 (four) hours as needed. 225 mL 09/20/2023 Active acetaminophen (TYLENOL) 160 mg/5 mL oral Liquid liquid Take 20.3mL (650 mg) by mouth every 6 (six) hours. 500 mL 09/20/2023 Active lidocaine 2% (XYLOCAINE) 2 % MM viscous solution Take 15 mL by mouth every 2 (two) hours as needed or as directed. 300 mL 09/20/2023 Active clindamycin palmitate (CLEOCIN) 75 mg/5 mL oral solution Take 20 mL (300 mg) by mouth every 8 (eight) hours. Discard remainder. 500 mL 09/20/2023 Active Social History Tobacco Use Types Packs/Day Years Used Date Smoking Tobacco: Never Smokeless Tobacco: Never Alcohol Use Standard Drinks/Week Comments Yes 0 (1 standard drink = 0.6 oz pur e alcohol) occasionally Sex and Gender Information Value Date Recorded Sex Assigned at Not on file Gender Identity Not on file Sexual Orientation Not on file Last Filed Vital Signs Vital Sign Reading Time Taken Comments Blood Pressure 116/70 09/20/2023 12:00 PM KEY ACCOUNT MANAGER Pulse 62 09/20/2023 12:00 PM KEY ACCOUNT MANAGER Temperature 36.7 ??C (98 ??F) 09/20/2023 9:48 AM KEY ACCOUNT MANAGER Respiratory Rate 16 09/20/2023 12:00 PM KEY ACCOUNT MANAGER Oxygen Saturation 98% 09/20/2023 12:00 PM KEY ACCOUNT MANAGER Inhaled Oxygen Concentration - - Weight 68 kg (150 lb) 09/17/2023 4:28 PM KEY ACCOUNT MANAGER Height 177.8 cm (5' 10) 09/20/2023 6:38 AM KEY ACCOUNT MANAGER Body Mass Index 21.52 09/17/2023 4:28 PM KEY ACCOUNT MANAGER Plan of Treatment Health Maintenance Due Date Last Done Comments Hepatitis C Screening 2002 Anxiety Screening (GEOVANNY-2) 2003 Depression Assessment (PHQ-2) 2003 HPV Vaccine (1 - Male 3-dose series) 2017 COVID-19 Vaccine ( season) 2023 11/02/2022, 08/18/2021, 01/10/2021, Additional history exists Adult Tetanus Booster 09/09/2023 09/09/2013 Pneumococcal <65 Aged Out 11/12/2003, , 2002, Additional history exists No longer eligible based on patient's age to complete this topic Influenza Vaccine Completed 07/26/2023, , 07/14/2020, Additional history exists Advance Directives For more information, please contact: [phone] Latest Code Status on File Code Status Date Activated Date Inactivated Comments Full Code 09/20/2023 8:39 AM 09/20/2023 6:31 PM Question Answer Comments How was code status determined? Physician Determ [facility] Care Teams Patternator Relationship Specialty Start Date End Date Md, Not Listed no address PCP - General Family Medicine 09/09/23
--- OUTSIDE RECORDS SUMMARY | 2024-03-08 02:52 | XMS_ITS | Referral Summary ---
Author Name Unknown Organization [facility] Address [address] [place] [address] Care Team Providers Care Kitchen Steward Name Role Phone No Ref-Primary, Physician Primary Care Provider Allergies No known active allergies Medications Medication Sig Dispensed Refills Start Date End Date Status glucagon 1 MG kit INJECT UNDER THE SKIN NEEDED FOR SEVERE HYPOGLYCEMIA 12/02/2020 Active Insulin Lispro-aabc (LYUMJEV) 100 UNIT/ML SOLN INJECT 120 UNITS UNDER THE SKIN DAILY DIRECTED 03/31/2021 Active amoxicillin-clavul anate (AUGMENTIN) 875-125 MG tablet Take 1 tablet by mouth 2 times daily 28 tablet 08/25/2022 Active dexamethasone (DECADRON) 6 MG tablet Take 1 tablet (6 mg) by mouth daily 5 tablet 08/25/2022 Active HYDROcodone-Acetam inophen 5-217 MG/10ML SOLN Take 5 mg of opiate by mouth 2 times daily 118 mL 08/25/2022 Active Social History Tobacco Use Types Packs/Day Years Used Date Smoking Tobacco: Never Assessed Adolescent Education Answer Date Record ed Getting School Help Needed Not on file 07/27 Sex and Gender Information Value Date Recorded Sex Assigned at Not on file Gender Identity Not on file Sexual Orientation Not on file Last Filed Vital Signs Vital Sign Reading Time Taken Comments Blood Pressure 126/85 08/25/2022 2:28 PM CDT Pulse 87 08/25/2022 2:28 PM CDT Temperature 37.7 ??C (99.8 ??F) 08/25/2022 2:28 PM CD T Respiratory Rate 18 08/25/2022 2:28 PM CDT Oxygen Saturation 96% 08/25/2022 2:28 PM CDT Inhaled Oxygen Concentration - - Weight - - Height - - Body Mass Index - - Plan of Treatment Not on file Care Teams Kitchen Steward Relationship Specialty Start Date End Date No Ref-Primary, Physician PCP - General 08/25/22
--- OUTSIDE RECORDS SUMMARY | 2024-03-08 02:52 | XMS_ITS | Clinical Summary ---
Author Name Unknown Organization [facility] Address [address] [place] [address] Care Team Providers Care Renal Case Manager Name Role Phone No Ref-Primary, Physician Primary [...] Mass Index - - Plan of Treatment Health Maintenance Due Date Last Done Comments ADVANCE CARE PLANNING 2002 ANNUAL REVIEW OF HM ORDERS 2002 YEARLY PREVENTIVE VISIT 2002 HIV SCREENING 2017 HPV IMMUNIZATION (1 - Male 3-dose series) 2017 HEPATITIS C SCREENING 2020 COVID-19 Vaccine (4 - season) 2023 08/18/2021, 01/10/2021, 12/13/2020 DTAP/TDAP/TD IMMUNIZATION (7 - Td or Tdap) 09/09/2023 09/09/2013, 11/28/2006, 11/12/2003, Additional history exists PHQ-2 (once per calendar year) 2023 INFLUENZA VACCINE (Season Ended) 2024 08/17/2022, 09/13/2021, 07/14/2020, Additional history exists HEPATITIS B IMMUNIZATION Completed 003, 2002, 2002 Pneumococcal Vaccine: Pediatrics (0 to 5 Years) and At-Risk Patients (6 to 64 Years) Aged Out 11/12/2003, 01/26/2003, 2002, Additional history exists No longer eligible based on patient's age to complete this topic IPV IMMUNIZATION Completed 11/28/2006, 03/2003, 2002, Additional history exists MENINGITIS IMMUNIZATION Aged Out 09/09/2013 No l onger eligible based on patient's age to complete this topic RSV MONOCLONAL ANTIBODY Aged Out No l onger eligible based on patient's age to complete this topic Care Teams Renal Case Manager Relationship Specialty Start Date End Date No Ref-Primary, Physician PCP - General 08/25/22
--- OUTSIDE RECORDS SUMMARY | 2024-03-08 02:52 | XMS_ITS | Encounter Summary ---
Author Name Unknown Organization [facility] Address [address] [address] Care Team Providers Care Corporation Secretary Name Role Phone Ketan Carias MD Primary Care Provider [phone] Encounter Details Date Type Department Care Team (Late st Contact Info) Description 02/20/2024 2:00 PM CDT Lab Visit [facility] [address] [facility] [place] [address] Screening for tuberculosis; Need for hepatitis B screening test; Screening for measles Social History Tobacco Use Types Packs/Day Years [...] on file documented as of this encounter Plan of Treatment Not on file documented as of this encounter Procedures Procedure Name Priority Date/Time Associated Diagnosis Comments RUBELLA IMMUNE STATUS, IGG Routine 02/20/2024 1:56 PM CDT Screening for measles TB QUANTIFERON GOLD PLUS Routine 02/20/2024 1:56 PM CDT Screening for tuberculosis TB QUANTIFERON GOLD PLUS MITOGEN Routine 02/20/2024 1:56 PM CDT Screening for tuberculosis TB QUANTIFERON GOLD PLUS TB2 Routine 02/20/2024 1:56 PM CDT Screening for tuberculosis TB QUANTIFERON GOLD PLUS TB1 Routine 02/20/2024 1:56 PM CDT Screening for tuberculosis TB QUANTIFERON GOLD PLUS NIL Routine 02/20/2024 1:56 PM CDT Screening for tuberculosis HEPATITIS B SURFACE ANTIBODY Routine 02/20/2024 1:56 PM CDT Need for hepatitis B screening test MEASLES VIRUS AB, IGG (IMMUNE STATUS CHECK) Routine 02/20/2024 1:56 PM CDT Screening for measles MUMPS IMMUNE STATUS, IGG Routine 02/20/2024 1:56 PM CDT Screening for measles HBSAG (HEPATITIS B SURFACE AG) Routine 02/20/2024 1:56 PM CDT Need for hepatitis B screening test documented in this encounter Results * TB QuantiFERON Gold Plus Mitogen (02/20/2024 1:56 PM CDT) [facility] Signature MITOGEN >10.000 IU/mL 02/23/2024 12:23 PM CDT [facility] Blood Venipuncture / Unknown 02/20/2024 1:56 PM CDT 02/20/2024 1:56 PM CDT Ketan Carias MD LAB_1 [facility] [address] [place] [address], [place] * TB QuantiFERON Gold Plus TB2 (02/20/2024 1:56 PM CDT) Pathologist [facility] TB2 0.229 IU/mL 02/23/2024 12:23 PM CDT [facility] Blood Venipuncture / Unknown 02/20/2024 1:56 PM CDT 02/20/2024 1:56 PM CDT Ketan Carias MD LAB_1 Performing Organization Address [facility] Co de Phone Number [facility] [address] * TB QuantiFERON Gold Plus TB1 (02/20/2024 1:56 PM CDT) [facility] TB1 0.259 IU/mL 02/23/2024 12:24 PM CDT [facility] Blood Venipuncture / Unknown 02/20/2024 1:56 PM CDT 02/20/2024 1:56 PM CDT Ketan Carias MD LAB_1 Performing Organization Address [facility] de Phone Number [facility] [address] * TB QuantiFERON Gold Plus NIL (02/20/2024 1:56 PM CDT) [facility] TB QuantiFERON Gold Plus Negative, M. tuberculosis Infection NOT likely Negative, M. tuberculosis Infection NOT likely 02/23/2024 12:24 PM CDT [facility] NIL 0.169 IU/mL 02/23/2024 12:24 PM CDT [facility] TB1-NIL 0.09 IU/mL 02/23/2024 12:24 PM CDT [facility] TB2-NIL 0.06 IU/mL 02/23/2024 12:24 PM CDT [facility] Mitogen-NIL 9.83 IU/mL 02/23/2024 12:24 PM CDT [facility] Blood Venipuncture / Unknown 02/20/2024 1:56 PM CDT 02/20/2024 1:56 PM CDT Narrative [facility] - 02/23/2024 12:24 PM CDT The results of the QuantiFERON TB Gold Plus should be correlated clinically. A single positive test in populations with a low prevalence of latent tuberculosis infection (low pretest probability), should not be taken as definitive evidence of infection. Decisions regarding retesting should be made on a case by case basis. When TB1-NIL or TB2-NIL is low (<1 IU/mL), repeat testing may alternate between positive and negative due to measurement imprecision and not necessarily a change in immune response. For more information refer to: https://www.cdc.gov/mmwr/preview/mmwrhtml/ld5118p8.htm. Ketan Carias MD LAB_1 Performing Organization Address [facility] de Phone Number [facility] [address] [place] [address] * Rubella Immune Status, IgG (02/20/2024 1:56 PM CDT) Rubella Units 2.38 02/21/2024 12:39 PM CDT [facility] Comment:The magnitude of the measured result, above the cutoff, is not indicative of the amount of antibody present. Rubella Intepretation Immune Immune 02/21/2024 12:39 PM CDT [facility] Blood Venipuncture / Unknown 02/20/2024 1:56 PM CDT 02/20/2024 1:56 PM CDT Ketna Carias MD LAB_1 Performing Organization Address [facility] de Phone Number [facility] [address] [place] [address] * Mumps Virus Ab, IgG (Immune Status Check) (02/20/2024 1:56 PM CDT) Mumps Units 46.1 AU/mL 02/21/2024 12:34 PM CDT [facility] Comment:The magnitude of the measured result, above the cutoff, is not indicative of the amount of antibody present. Mumps Intepretation Immune Immune 02/21/2024 12:34 PM CDT [facility] Blood Venipuncture / Unknown 02/20/2024 1:56 PM CDT 02/20/2024 1:56 PM CDT Ketan Carias MD LAB_1 Performing Organization Address [facility] de Phone Number [facility] [address] [place] [address] * Measles Virus Ab, IgG (Immune Status Check) (02/20/2024 1:56 PM CDT) Rubeola Units 74.2 AU/mL 02/21/2024 12:33 PM CDT [facility] Comment:The magnitude of the measured result, above the cutoff, is not indicative of the amount of antibody present. Rubeola Interpretation Immune Immune 02/21/2024 12:33 PM CDT [facility] Blood Venipuncture / Unknown 02/20/2024 1:56 PM CDT 02/20/2024 1:56 PM CDT Ketan Carias MD LAB_1 Performing Organization Address [facility] Phone Number [facility] [address] [place] [address] * Hepatitis B Surface Antigen (02/20/2024 1:56 PM CDT) Pathologist [facility] Hepatitis B Surface Antigen Negative (Non Reactive) Negative (Non Reactive) 02/20/2024 6:20 PM CDT [facility] Blood Venipuncture / Unknown 02/20/2024 1:56 PM CDT 02/20/2024 1:56 PM CDT Ketan Carias MD LAB_1 Performing Organization Address [facility] de Phone Number [facility] [address] [place] [address] * Hepatitis B Surface Antibody (02/20/2024 1:56 PM CDT) Hep B Surf Antibody Result <2.0 mIU/mL 02/20/2024 6:36 PM CDT [facility] Hep B Surf Antibody Interpretation Negative (Non Reactive) Positive (Reactive) 02/20/2024 6:36 PM CDT [facility] Comment:Individual is consid ered not immune to HBV infection. Blood Venipuncture / Unknown 02/20/2024 1:56 PM CDT 02/20/2024 1:56 PM CDT Ketan Carias MD LAB_1 [facility] [address] [place], [place] [id number] [place] [address] documented in this encounter Visit Diagnoses Diagnosis Screening for tuberculosis Screening examination for pulmonary tuberculosis Need for hepatitis B screening test Screening for measles Screening examination for measles documented in this encounter Care Teams Corporation Secretary Relationship Specialty Start Date End Date Ketan Carias MD [address] [place] [address] PCP - General Family Practice 06/21/23 documented as of this encounter
--- OUTSIDE RECORDS SUMMARY | 2024-03-08 02:52 | XMS_ITS | Patient Health Record ---
Author Name Unknown Organization [facility] Address [address] [place] [address] Care Team Providers Care Horse Shoer Name Role Phone Jaye Membrenoan Primary Care Provider [phone] Reason For Referral No Information Immunizations Vaccine Route Administration Date Status Comme nts Moderna-Primary dose (12 years & older) 0.5ml & (0.25ml bosster dose) IM Intramuscular 12/13/2020 Administered Moderna-Primary dose (12 years & older) 0.5ml & (0.25ml bosster dose) IM Intramuscular 01/10/2021 Administered Plan Of Treatment No Information Insurance Providers Payer Name Payer Address Payer Phone Subscriber Number Group Number Insured Name Patient Relationship to Insured Coverage Start Date Coverage End Date [facility] [address] [place] [phone] [id number] DEBORAH BURGESS Self - patient is the insured
--- OUTSIDE RECORDS SUMMARY | 2024-03-08 02:52 | XMS_ITS | Encounter Summary ---
Author Name Unknown Organization [facility] Address [address], [place] [address] Care Team Providers Care Air Sealing Technician Name Role Phone Ketan Carias MD Primary Care Provider [phone] Reason for Visit * Reason Comments Annual Exam Test Request Tb/titer Encounter Details Date Type Department Care Team (Late st Contact Info) Description 02/20/2024 2:15 PM CDT Office Visit [place] [id number] [facility] [address] [place], [place] [id number] Panda De La Garza MD [address] [place], [place] [id number] Annual physical exam (Primary Dx); Type 1 diabetes mellitus without complication (HRC); Need for hepatitis C screening test; Screening for HIV (human immunodeficiency virus); Immunization due; Screening cholesterol level Social History Tobacco Use Types Packs/Day Years [...] on file documented as of this encounter Last Filed Vital Signs Vital Sign Reading Time Taken Comments Blood Pressure 107/69 02/20/2024 2:40 PM CDT Pulse 70 02/20/2024 2:40 PM CDT Temperature 36.7 ??C (98.1 ??F) 02/20/2024 2:40 PM CD T Respiratory Rate - - Oxygen Saturation 99% 02/20/2024 2:40 PM CDT Inhaled Oxygen Concentration - - Weight 68.9 kg (152 lb) 02/20/2024 2:40 PM CDT Height 176.5 cm (5' 9.5) 02/20/2024 2:40 PM CDT Body Mass Index 22.12 02/20/2024 2:40 PM CDT documented in this encounter Progress Notes * Panda De La Garza MD - 02/20/2024 2:15 PM CDT PREVENTIVE MALE VISIT Subjective Deejay Lopez is a 23 y.o. male who presents for a routine preventive physical exam. Patient concerns: 1. Form for med school. Preventive Health: Diet: mostly eats healthy choices, protein, veggies and carb's. Exercise: At least 2-3 times a week, does 1 hour of exercising , does 2 miles and rest is weight lifting or calisthenic Substance Abuse: none Relationship: Yes, male new relationship. Safe in relationship. Practices safe sex. Consistently uses seat belts. Consistently wears bike helmet. No guns in the home. Sun protection used. Social History Lives in a townhouse with college room mates, not currently employed. Very relaxed, no stress currently. Smoking: Never Alcohol: Ocassionally, 2-4 beers per week Health Maintenance: Immunizations: COVID: up to date Influenza: due today Tetanus: up to date HPV series: up to date Shingles: due today Pneumococcal vaccine: due today Lipid screening: ordered today, pending collection Diabetes screening: ordered today, pending collection HIV screening: ordered today, pending collection Hepatitis C screening: ordered today, pending collection Colorectal cancer screening: referral provided Objective Filed Vitals: 02/20/24 1440 BP: 107/69 Pulse: 70 Temp: 98.1 ??F (36.7 ??C) TempSrc: Oral SpO2: 99% Weight: 152 lb (68.9 kg) Height: 5' 9.5 (1.765 m) Estimated body mass index is 22.12 kg/m?? as calculated from the following: Height as of this encounter: 5' 9.5 (1.765 m). Weight as of this encounter: 152 lb (68.9 kg). General Appearance: alert, well appearing and in no apparent distress Heart: regular rate and rhythm, no murmurs, gallops or rubs and normal S1 and S2 Lungs: clear to ausculation, no wheezes, rales or rhonchi, equal breath sounds throughout and normal respiratory effort Abdomen: soft, non tender, nondistended Extremities: Warm and well perfused, no edema or clubbing Neurologic: normal speech, no facial droop or focal neurologic deficit Psychiatric: affect/mood normal, cooperative, normal judgement/insight and memory intact PHQ2 was administered today with a total score of 0. See flowsheet for details. Assessment/Plan Deejay Lopez is a 23 y.o. male who presents for a routine preventive physical exam. 1. Annual physical exam Healthy overall, no concerns today, school form for med school filled out and given -Vision screening . 2. Type 1 diabetes mellitus without complication (HRC) Well controlled, on insulin. last A1c this month was 5.9, follow up with private endocrine clinic. Has CGM and blood glucose mostly within normal range. Denies any complications. 3. Need for hepatitis C screening test - Hepatitis C Antibody, with Reflex; Future 4. Screening for HIV (human immunodeficiency virus) - HIV 1/2 Ag/Ab 4th Generation; Future 5. Immunization due - TDAP 7. Screening cholesterol level - Lipid Panel and Direct LDL(If Needed); Future Counseled on the following: Healthy diet Regular physical activity Regular brushing, flossing, dental care Tobacco, alcohol, drug use Preventive visit in 1 year, sooner as needed for any concerns. Dr. Maynard, supervising physician, was immediately available during the visit to answer questions forboth the patient and me. Preceptor saw the patient. Panda D eLa Garza MD [place] Resident PGY-3 02/20/24 Associated attestation - Valeria Maynard MD - 02/20/2024 5:12 PM CDT NEW [facility] PRECEPTOR ATTESTATION GC: This service has been performed in part by a resident, Panda De La Garza MD, under the direction of a teaching physician. I have personally seen the patient and agree with the resident's findings. documented in this encounter Plan of Treatment Scheduled Orders Name Type Priority Associated Diagnoses Orde r Schedule Hepatitis C Antibody, with Reflex Microbiology Routine Need for hepatitis C screening test Expected: 02/20/2024, Expires: 05/20/2024 HIV 1/2 Ag/Ab 4th Generation Microbiology Routine Screening for HIV (human immunodeficiency virus) Expected: 02/20/2024, Expires: 05/20/2024 Lipid Panel and Direct LDL(If Needed) Lab Routine Screening cholesterol level Expected: 02/20/2024, Expires: 05/20/2024 documented as of this encounter Visit Diagnoses Diagnosis Annual physical exam- Primary Routine general medical examination at a health care facility Type 1 diabetes mellitus without complication (HRC) Type I (juvenile type) diabetes mellitus without mention of complication, not stated as uncontrolled Need for hepatitis C screening test Special screening examination for other specified viral diseases Screening for HIV (human immunodeficiency virus) Special screening examination for other specified viral diseases Immunization due Need for prophylactic vaccination and inoculation against unspecified single disease Screening cholesterol level Screening for lipoid disorders documented in this encounter Care Teams Air Sealing Technician Relationship Specialty Start Date End Date Ketan Carias MD [address] [place] [address] PCP - General Family Practice 06/21/23 documented as of this encounter
--- OUTSIDE RECORDS SUMMARY | 2024-03-08 02:52 | XMS_ITS | Clinical Summary ---
Author Name Unknown Organization [facility] Address [address] [place] [address] Care Team Providers Care Animal Warden Name Role Phone Ketan Carias MD Primary Care Provider [phone] Source Comments You are receiving this document as you are listed as the primary care provider,follow-up provider, or the patient has been referred to you for consultation.This is in compliance with the Medicare and[facility] EHR Incentive Program,which states Providers who transition their patient to another setting of careor provider of care or refers their patient to another provider of care shouldprovide summary care record for each transition of care or referral. [facility] Allergies No known active allergies Medications Medication Sig Dispensed Refills Start Date End Date Status PRECISION XTRA CHECK 1 TO 4 TIMES WHEN BLOOD SUGARS ARE ELEVATED OR DURING ILLNESS 04/18/2023 Active HUMALOG 100 UNIT/ML injection vial TAKE 120 UNIT PER DAY FOR 30 DAYS 04/24/2023 Active LANTUS SOLOSTAR 100 UNIT/ML pen ADMINISTER UP TO 30 UNITS UNDER THE SKIN EVERY DAY FOR PUMP FAILURE 04/17/2023 Active Insulin Disposable Pump (OMNIPOD 5 G6 POD, GEN 5,) SMARTSI SUB-Q Every Other Day 05/06/2023 Active BAQSIMI ONE PACK 3 MG/DOSE nasal powder daily. 04/17/2023 Acti ve ALBUterol sulfate HFA 108 (90 Base) MCG/ACT inhaler Inhale 2 Puffs every 4 hours as needed. Active Insulin Infusion Pump (T:SLIM X2 INSULIN ATTENDANT [facility]IL[facility] BASAL6.4) KARL Inject subcutaneously. Active Active Problems Problem Noted Date Diagnosed Date Peritonsillar abscess 09/13/2023 Encounters Date Type Department Care Team Description 02/20/2024 2:15 PM CDT Office Visit [address] [place] [address] Panda De La Garza MD Annual physical exam (Primary Dx); Type 1 diabetes mellitus without complication (HRC); Need for hepatitis C screening test; Screening for HIV (human immunodeficiency virus); Immunization due; Screening cholesterol level 02/20/2024 2:00 PM CDT Lab Visit [facility] [address] [place] [address]. [place] [address] Screening for tuberculosis; Need for hepatitis B screening test; Screening for measles 02/03/[address] [place] [address] Ketan Carias MD Lab/Rad Request from Last 3 Months Immunizations Name Administration Dates Next Due DTaP 11/28/2006, 4,01/26/2003,2002,2002 Flu Vac (3+ yrs) 07/22/2007,08/15/2005 Flu Vac Preserv Free (3+yrs) 08/05/2013, 07/18/2012,07/31/2011,2009 [id number] 12/07/2009,09/26/2009 HepA Ped/Adol (1-18 yrs) 07/08/2010,12/07/2009,0 07/22/2007 HepA, Pediatric (DO NOT USE; for [facility] only) 06/13/2006 HepB Ped/Adol (0-18 yrs) 2002 HepB, Unspecified Formulation 06/08/2003, 002 Hib, Unspecified Formulation 11/12/2003, 01/26/2003,2002,2001 IPV (Polio) 11/28/2006 Influenza (Flucelvax), Prese rv Free QIV 08/17/2022 Influenza IIV4 (Quadrivalent ) 0.5mL (08864) 07/26/2023,09/13/2021,07/14/2020,2014,08/03/2014 Influenza, Unspecified Formulation 09/04/2006 MCV4 Menveo 2m.+ (two vial) 09/09/2013 MMR 11/28/2006,07/28/2003 Moderna Bivalent 12+ 07/26/2023,11/02/2022 Moderna Monovalent 12+ 08/18/2021,01/10/2021,07/2021 Pneumococcal 7, PED 11/12/2003, 3,2002,2001 Polio, Unspecified Formulation 06/08/2003,2002,2002 Tdap 02/20/2024,09/09/2013 Typhoid (Typhim Vi, IM) 04/10/2012 Varicella 07/26/2009,07/28/2003 Family History Medical History Relation Name Comments Hypertension Father Down Syndrome Brother Cancer Maternal Grandfather Cancer Paternal Grandfather Relation Name Status Comments Father Alive Mother Alive Brother Alive Maternal Grandfather Paternal Grandfather Sister Alive Social History Tobacco Use Types Packs/Day Years Used Date Smoking Tobacco: Never Smokeless Tobacco: Never Tobacco Cessation:Counseling Given: Not Answered Alcohol Use Standard Drinks/Week Comments Yes 1 [...] Mass Index 22.12 02/20/2024 2:40 PM CDT Plan of Treatment Health Maintenance Due Date Last Done Comments Diabetes: Creatinine 2002 Diabetes: Eye Exam 2002 Diabetes: Foot Exam 2002 Diabetes: HGBA1C 2002 Diabetes: Lipid Panel 2002 Diabetes: Urine Microalbumin 2002 Hep C Screening (Preventive Services) 2002 Pneumococcal (1 - PCV) 2008 4, 01/26/2003, 2002, Additional history exists HPV Vaccine (1 - Risk male 3-dose series) 2013 HIV Screening (Preventive Services) 2018 COVID-19 Vaccine ( season) 2023 07/26/2023, 11/02/2022, 08/18/2021, Additional history exists Adult Preventive Visit 02/19/2025 02/20/2024, 2022 DTaP/Tdap/Td (8 - Tdap) 02/19/2034 02/20/20 24, 09/09/2013, 11/28/2006, Additional history exists Zoster/Shingles (1 of 2) 2052 HepB Completed 06/08/2003, 08/05, 2002 Hib Completed 11/12/2003, 01/03, 2002, Additional history exists IPV (Polio) Completed 11/28/2006, 03/2003, 2002, Additional history exists Varicella Completed 07/26/2009, 07/28/2003 HepA Completed 07/08/2010, 01/2010, 07/22/2007, Additional history exists MCV4 Aged Out 09/09/2013 No longer eligi ble based on patient's age to complete this topic Influenza Completed 07/26/2023, 08/04, 09/13/2021, Additional history exists Procedures Procedure Name Priority Date/Time Associated Diagnosis Comments RUBELLA IMMUNE STATUS, IGG Routine 02/20/2024 1:56 PM CDT Screening for measles MUMPS IMMUNE STATUS, IGG Routine 02/20/2024 1:56 PM CDT Screening for measles MEASLES VIRUS AB, IGG (IMMUNE STATUS CHECK) Routine 02/20/2024 1:56 PM CDT Screening for measles HBSAG (HEPATITIS B SURFACE AG) Routine 02/20/2024 1:56 PM CDT Need for hepatitis B screening test HEPATITIS B SURFACE ANTIBODY Routine 02/20/2024 1:56 PM CDT Need for hepatitis B screening test TB QUANTIFERON GOLD PLUS MITOGEN Routine 02/20/2024 1:56 PM CDT Screening for tuberculosis TB QUANTIFERON GOLD PLUS TB2 Routine 02/20/2024 1:56 PM CDT Screening for tuberculosis TB QUANTIFERON GOLD PLUS TB1 Routine 02/20/2024 1:56 PM CDT Screening for tuberculosis TB QUANTIFERON GOLD PLUS NIL Routine 02/20/2024 1:56 PM CDT Screening for tuberculosis TB QUANTIFERON GOLD PLUS Routine 02/20/2024 1:56 PM CDT Screening for tuberculosis from Last 3 Months Results * Rubella Immune Status, IgG (02/20/2024 1:56 PM CDT) Rubella Units 2.38 02/21/2024 12:39 PM CDT [facility] Comment:The magnitude of the measured result, above the cutoff, is not indicative of the amount of antibody present. Rubella Intepretation Immune Immune 02/21/2024 12:39 PM CDT [facility] Blood Venipuncture / Unknown 02/20/2024 1:56 PM CDT 02/20/2024 1:56 PM CDT Ketan Carias MD LAB_1 Performing Organization Address [facility] Co de Phone Number [facility] [address] [place] [address] * TB QuantiFERON Gold Plus Mitogen (02/20/2024 1:56 PM CDT) MITOGEN >10.000 IU/mL 02/23/2024 12:23 PM CDT [facility] Blood Venipuncture / Unknown 02/20/2024 1:56 PM CDT 02/20/2024 1:56 PM CDT Ketan Carias MD LAB_1 Performing Organization Address [facility] Phone Number [facility] [address] [place] [address] * TB QuantiFERON Gold Plus TB2 (02/20/2024 1:56 PM CDT) TB2 0.229 IU/mL 02/23/2024 12:23 PM CDT [facility] Blood Venipuncture / Unknown 02/20/2024 1:56 PM CDT 02/20/2024 1:56 PM CDT Ketan Carias MD LAB_1 Performing Organization Address [facility] de Phone Number [facility] [address] [place] [address] * TB QuantiFERON Gold Plus TB1 (02/20/2024 1:56 PM CDT) TB1 0.259 IU/mL 02/23/2024 12:24 PM CDT [facility] Blood Venipuncture / Unknown 02/20/2024 1:56 PM CDT 02/20/2024 1:56 PM CDT Ketan Carias MD LAB_1 Performing Organization Address [facility] Co de Phone Number [facility] [address] * TB QuantiFERON Gold Plus NIL (02/20/2024 1:56 PM CDT) [facility] TB QuantiFERON Gold Plus Negative, M. tuberculosis Infection NOT likely Negative, M. tuberculosis Infection NOT likely 02/23/2024 12:24 PM CDT [facility] NIL 0.169 IU/mL 02/23/2024 12:24 PM CDT [facility] TB1-NIL 0.09 IU/mL 02/23/2024 12:24 PM CDT [facility] TB2-NIL 0.06 IU/mL 02/23/2024 12:24 PM CDT [facility] Mitogen-NIL 9.83 IU/mL 02/23/2024 12:24 PM CDT [facility] Blood Venipuncture / Unknown 02/20/2024 1:56 PM CDT 02/20/2024 1:56 PM CDT Narrative [facility] - 02/23/2024 12:24 PM CDT The [...] immune response. For more information refer to: https://www.cdc.gov/mmwr/preview/mmwrhtml/zb8980d8.htm. Ketan Carias MD LAB_1 [facility] [address] [place], [place] [id number] [place] [address] * Hepatitis B Surface Antibody (02/20/2024 1:56 PM CDT) [facility] Hep B Surf Antibody Result <2.0 mIU/mL 02/20/2024 6:36 PM CDT [facility] Hep B Surf Antibody Interpretation Negative (Non Reactive) Positive (Reactive) 02/20/2024 6:36 PM CDT [facility] Comment:Individual is consid ered not immune to HBV infection. Blood Venipuncture / Unknown 02/20/2024 1:56 PM CDT 02/20/2024 1:56 PM CDT Ketan Carias MD LAB_1 Performing Organization Address [facility] de Phone Number [facility] [address] * Measles Virus Ab, IgG (Immune Status Check) (02/20/2024 1:56 PM CDT) Rubeola Units 74.2 AU/mL 02/21/2024 12:33 PM CDT [facility] Comment:The magnitude of the measured result, above the cutoff, is not indicative of the amount of antibody present. Rubeola Interpretation Immune Immune 02/21/2024 12:33 PM CDT [facility] Blood Venipuncture / Unknown 02/20/2024 1:56 PM CDT 02/20/2024 1:56 PM CDT Ketan Carias MD LAB_1 Performing Organization Address [facility] Phone Number [facility] [address] * Mumps Virus Ab, IgG (Immune Status Check) (02/20/2024 1:56 PM CDT) Mumps Units 46.1 AU/mL 02/21/2024 12:34 PM CDT [facility] Comment:The magnitude of the measured result, above the cutoff, is not indicative of the amount of antibody present. Mumps Intepretation Immune Immune 02/21/2024 12:34 PM CDT [facility] Blood Venipuncture / Unknown 02/20/2024 1:56 PM CDT 02/20/2024 1:56 PM CDT Ketan Carias MD LAB_1 Performing Organization Address [facility]/ZIP Co de Phone Number [facility] [address] [place], [place] [address] * Hepatitis B Surface Antigen (02/20/2024 1:56 PM CDT) Hepatitis B Surface Antigen Negative (Non Reactive) Negative (Non Reactive) 02/20/2024 6:20 PM CDT [facility] Blood Venipuncture / Unknown 02/20/2024 1:56 PM CDT 02/20/2024 1:56 PM CDT Ketan Carias MD LAB_1 [facility] [address] [place], [place] [address] Last 3 Mon[facility] Care Teams Animal Warden Relationship Specialty Start Date End Date Ketan Carias MD [address] [place] [address] PCP - General Family Practice 06/21/23
--- OUTSIDE RECORDS SUMMARY | 2024-03-08 02:52 | XMS_ITS | Referral Summary ---
Author Name Unknown Organization [facility] Address [address] [place] [address] Care Team Providers Care Shake Out Worker Name Role Phone Md, Not Listed Primary [...] Comments Blood Pressure 116/70 09/20/2023 12:00 PM SPORTS MEDICINE TRAINER Pulse 62 09/20/2023 12:00 PM SPORTS MEDICINE TRAINER Temperature 36.7 ??C (98 ??F) 09/20/2023 9:48 AM SPORTS MEDICINE TRAINER Respiratory Rate 16 09/20/2023 12:00 PM SPORTS MEDICINE TRAINER Oxygen Saturation 98% 09/20/2023 12:00 PM SPORTS MEDICINE TRAINER Inhaled Oxygen Concentration - - Weight 68 kg (150 lb) 09/17/2023 4:28 PM SPORTS MEDICINE TRAINER Height 177.8 cm (5' 10) 09/20/2023 6:38 AM SPORTS MEDICINE TRAINER Body Mass Index 21.52 09/17/2023 4:28 PM SPORTS MEDICINE TRAINER Plan of Treatment Not on file Advance Directives For more information, please contact: [phone] Latest Code Status on File Code Status Date Activated Date Inactivated Comments Full Code 09/20/2023 8:39 AM 09/20/2023 6:31 PM Question Answer Comments How was code status determined? [facility] Care Teams Shake Out Worker Relationship Specialty Start Date End Date Md, Not Listed no address PCP - General Family Medicine 09/09/23
[2024-03-08 03:27] LABS: Glucose, Point-of-Care* 77 mg/dl (60-115)
[2024-03-08] MEDS: 5 % DEXTROSE/0.9% SOD CHLORIDE 1,000 ML 200 ML IV (03:31)
[2024-03-08 04:22] LABS: Glucose, Point-of-Care* 115 mg/dl (60-115)
[2024-03-08 05:27] LABS: Glucose, Point-of-Care* 142 mg/dl (60-115)
[2024-03-08 06:21] LABS: Glucose, Point-of-Care* 152 mg/dl (60-115)
== END 2024-03-08 07:41 | disposition home or self-care (01) ==
PROVIDERS: Emergency Provider Family Medicine
DX: F10.129 Alcohol abuse with intoxication, unspecified (principal); E11.649 Type 2 diabetes mellitus with hypoglycemia without coma
CPT/HCPCS: 36415; 80048; 82077; 82803; 82947; 85025; 96374; 99283; 99284; J2405; J7030; J7042